=== PATIENT | male | born 1970 | race Caucasian/White ===

== ENCOUNTER 2017-10-20 00:50 | Emergency (ER) | payer OTHER, SELFPAY ==
[2017-10-20 00:51] VITALS: BP 158/98; PULSE 91; RESP 15; TEMP 37.1; O2SAT 98; BMI 27.4
--- NOTE | 2017-10-20 01:25 | EKG12_ITS ---
Test Reason : REPEAT Blood Pressure : / mmHG Vent. Rate : 086 BPM Atrial Rate : 086 BPM P-R Int : 156 ms QRS Dur : 104 ms QT Int : 360 ms P-R-T Axes : 046 022 013 degrees QTc Int : 430 ms Normal sinus rhythm Normal ECG Confirmed by RICHMOND GUDINO ([id number]), editor producer DEEDEE OLMOS ([id number]) on 11/01/2017 5:49:32 PM Referred By: MARCELINO Confirmed By:RICHMOND GUDINO
--- NOTE | 2017-10-20 01:26 | RAD_ITS ---
STUDY: X-RAY CHEST REASON FOR EXAM: Male, 47 years old. Chest pain. Diaphoresis, nausea. TECHNIQUE: PA and lateral chest. COMPARISON: None. FINDINGS: The lungs are clear and expanded. There is no demonstrated pleural abnormality. Normal size heart. Normal mediastinum and jose luis. Normal visualized pulmonary arteries. Normal visualized aortic arch and descending thoracic aorta. Normal visualized thoracic spine. Normal visualized ribs, clavicles, and shoulders. There is no demonstrated abnormality of the visualized soft tissue structures of the upper abdomen. RAD/Chest PA and Lateral IMPRESSION: Normal x-ray examination of the chest. Electronically Signed: Wilbert Corona MD at 2:48 EDT , Service support ,
[2017-10-20 01:28] VITALS: O2SAT 99
[2017-10-20 01:32] LABS: Absolute Lymphocyte Count 1.73 X10^3/ul (0.83-4.51); Absolute Neutrophil Count 3.6 X10^3/uL (2.0-7.7); Basophil# 0.02 X10^3/uL; Basophil% 0.3 % (0-1); Eosinophil# 0.21 X10^3/uL; Eosinophils% 3.4 % (0-5); Hematocrit 44.9 % (40-54); Hemoglobin 15.2 g/dl (13.0-16.5); Lymphocyte # 1.73 X10^3/ul (4.0); Mean Corp Hgb Conc 33.9 g/gl (32-36); Mean Corpuscular Hgb 31.5 pg (27.0-32.0); Mean Platelet Vol. 8.3 fl (6.2-12.0); Monocyte% 9.7 % (0-10); Neutrophil % 58.3 % (47-70); Platelet Count 191 K/mm3 (150-450); RBC Distribution Width CV 12.7 % (11.6-14.6); RBC Distribution Width SD 42.3 fl (35.1-43.9); Red Blood Count 4.83 M/mm3 (4.6-6.2); White Blood Count 6.2 K/mm3 (4.4-11.0)
[2017-10-20 01:33] LABS: POSITIVE COUNT NO; POSITIVE DIFFERENTIAL NO; POSITIVE MORPHOLOGY NO
[2017-10-20] MEDS: Aspirin 81 MG TAB.CHEW 324 MG PO (01:53)
[2017-10-20 01:58] LABS: Anion Gap 6 (5-15); BUN 18 mg/dL (7-18); BUN/Creat Ratio 18.9 RATIO (10-20); Calcium,Total 9.2 mg/dL (8.5-10.1); Chloride 104 mmol/L (98-107); Creatinine, Serum 0.95 mg/dL (0.70-1.30); EST Glomerular Filtration Rate 91 mL/min (>60); Est Glom Filt Rate - Afr Amer 110 mL/min (>60); Estimated Creatinine Clearance 98.19 ml/min; Glucose 96 mg/dL (74-106); Potassium 4.7 mmol/L (3.5-5.1); Sodium Level 139 mmol/L (136-145)
[2017-10-20 02:34] VITALS: BP 137/89; PULSE 87; RESP 19; O2SAT 93
--- NOTE | 2017-10-20 02:53 | EKG12_ITS ---
Test Reason : CP Blood Pressure : / mmHG Vent. Rate : 087 BPM Atrial Rate : 087 BPM P-R Int : 160 ms QRS Dur : 108 ms QT Int : 356 ms P-R-T Axes : 061 014 026 degrees QTc Int : 428 ms Normal sinus rhythm Normal ECG Confirmed by RICHMOND GUDINO ([id number]), assignment editor DEEDEE OLMOS ([id number]) on 11/01/2017 5:49:45 PM Referred By: MARCELINO Confirmed By:RICHMOND GUDINO
[2017-10-20 03:50] VITALS: BP 133/98; PULSE 80; RESP 17; O2SAT 95
--- NOTE | 2017-10-20 04:27 | ED.VISSUMM ---
- ER Visit Summary Date of Service: 10/20/17 Chief Complaint: Heart racing History of Present Illness: The patient is a 47 M with a history of depression anxiety and asthma who presents with a sensation of his heart racing and palpitations. He states this woke him from sleep at about 11 PM which was about 2 hours prior to presentation here. He states became diaphoretic nauseated and felt like his heart was racing. He denies any chest pain or shortness of breath with this. No history of prior similar symptoms. No recent illness. Physical Examination: Afebrile vitals are unremarkable Moist mucous membranes Heart regular rate and rhythm Lungs are clear Abdomen soft 2+ radial pulses extremities nontender no edema Alert Test Results: Initial EKG shows sinus rhythm at a rate of 87. Repeat EKG unchanged normal sinus rhythm at a rate of 86. CBC BMP normal. Troponin and delta troponin normal. Chest x-ray normal. Emergency Department Course and Treatment: Patient has remained resting comfortably throughout his observation here in the emergency department. He has been maintained on cardiac monitoring and has had no events on telemetry. His workup is unremarkable with normal labs repeat troponin. I do not believe his symptoms are due to cardiac ischemia. He has no evidence of dysrhythmia. He was advised to follow-up as an outpatient with his primary care physician and was discharged home. Treatment Plan: [] Disposition: Discharge Impression: Palpitations This note was generated with [employer] dictation software. It may contain incorrect words, spelling, and punctuation that were not noted in review of the chart prior to signing ED Disposition - Plan for ED Patient: Chief Complaint: Chest Pain Referrals: Fiona Bain DO [Primary Care Provider] -
--- NOTE | 2017-10-20 04:31 | ED.DEP ---
ED Disposition - Plan for ED Patient: Chief Complaint: Chest Pain Instructions: ED Palpitations Referrals: Fiona Bain DO [Primary Care Provider] -
[2017-10-20 04:35] VITALS: BP 132/94; PULSE 87; RESP 16; O2SAT 93
== END 2017-10-20 04:41 | disposition home or self-care (01) ==
PROVIDERS: Emergency Provider Emergency Medicine; Family Provider Internal Medicine; PCP Internal Medicine
DX: R00.2 Palpitations (principal); F32.9 Major depressive disorder, single episode, unspecified; F41.9 Anxiety disorder, unspecified; J45.909 Unspecified asthma, uncomplicated; Z79.899 Other long term (current) drug therapy
CPT/HCPCS: 71046; 80048; 84484; 85025; 93005; 99285; A4216

== ENCOUNTER 2018-06-24 12:53 | Emergency (ER) | payer OTHER, SELFPAY ==
[2018-06-24 12:55] VITALS: BP 148/93; PULSE 89; RESP 18; TEMP 36.6; O2SAT 99; BMI 27.4
--- NOTE | 2018-06-24 13:48 | ED.VISSUMM ---
- ER Visit Summary Date of Service: 06/24/18 Chief Complaint: Wooden foreign body volar surface left little finger History of Present Illness: The patient is a 48 M who is right-hand dominant presents with a retained wooden foreign body/splinter volar surface left little finger. He states he is able to palpate it. Uncertain of last tetanus. Per review of records tetanus was less than 5 years ago. He denies paresthesia, anesthesia motor weakness. He has no antibiotic allergies other than azithromycin. He has no limited range of motion. Physical Examination: Vital signs noted. Blood pressure slightly at 140/93. There is a palpable foreign body noted volar surface left little finger distal of the DIP joint on the ulnar side of the left little finger. Two-point determination normal. Sensation to light touch is intact. The flexor digitorum superficialis and flexor digitorum profundus are intact. The extensor minimize tendon is intact. There is no subungual hematoma noted. Capillary refill is normal. Test Results: None were obtained Emergency Department Course and Treatment: Digit was anesthetized 1% lidocaine by digital block. Skin was unroofed and attempt to remove the splinter. The splinter fragmented. Using a 15 blade the wound was extended distally. The area was undermined and a 2 mm x 10 mm wooden foreign body was removed. The cavity was irrigated with 100 cc of normal saline. No retained foreign body noted. Treatment Plan: Wound care, antibiotics and wound check in 2 days Disposition: Discharged home in stable improved condition Impression: Removal wooden foreign body left little finger This note was generated with [employer] dictation software. It may contain incorrect words, spelling, and punctuation that were not noted in review of the chart prior to signing ED Disposition - Plan for ED Patient: Disposition: Home or Assisted Living Instructions: ED Foreign Body Splinter Removal Prescriptions: Cephalexin [Keflex] 500 mg PO TID #14 cap Referrals: Fiona Bain DO [Primary Care Provider] - 2 Days for wound check
[2018-06-24] MEDS: Cephalexin 250 MG Capsule 500 MG PO (14:02)
[2018-06-24 14:04] VITALS: BP 122/84; PULSE 62; RESP 15; O2SAT 98
== END 2018-06-24 14:06 | disposition home or self-care (01) ==
PROVIDERS: Emergency Provider Emergency Medicine; Family Provider Internal Medicine; PCP Internal Medicine
DX: S60.457A Superficial foreign body of left little finger, initial encounter (principal); W45.8XXA Other foreign body or object entering through skin, initial encounter; Y93.9 Activity, unspecified; Y92.89 Other specified places as the place of occurrence of the external cause; Y99.8 Other external cause status; J44.9 Chronic obstructive pulmonary disease, unspecified
CPT/HCPCS: 10120; 99283

== ENCOUNTER → 2021-03-03 17:59 | Outpatient (CLI) | payer OTHER, SELFPAY | PROVIDERS: PCP Internal Medicine; Visit Provider Physician Assistant | DX: Z11.52 Encounter for screening for COVID-19 (principal) | CPT/HCPCS: 87635; U0005; U0003 ==

== ENCOUNTER 2022-02-09 20:51 | Emergency (ER) | payer OTHER, SELFPAY ==
[2022-02-09 20:52] VITALS: BP 133/92; PULSE 71; RESP 18; TEMP 36.3; O2SAT 98; BMI 28.6
--- NOTE | 2022-02-09 21:10 | EKG12_ITS ---
Test Reason : CP Blood Pressure : / mmHG Vent. Rate : 081 BPM Atrial Rate : 081 BPM P-R Int : 162 ms QRS Dur : 100 ms QT Int : 360 ms P-R-T Axes : 019 015 020 degrees QTc Int : 418 ms Normal sinus rhythm Normal ECG Confirmed by KRISHAN AVALOS, SARAH ([id number]), slot editor KAVITA PULIDO ([id number]) on 02/11/2022 11:02:16 AM Referred By: CHANO Confirmed By:SARAH NICKERSON MD
--- NOTE | 2022-02-09 21:11 | RAD_ITS ---
EXAM: XR CHEST, 1 VIEW CLINICAL INDICATION: chest pain TECHNIQUE: Frontal view of the chest. This report was created using [employer] report generation technology. COMPARISON: 10/20/2017 FINDINGS: LUNGS AND PLEURAL SPACES: Unremarkable. No consolidation or edema. No pneumothorax. No effusion. HEART: Unremarkable. Cardiac silhouette not enlarged. MEDIASTINUM: Central airways and mediastinal contour are unremarkable. BONES/JOINTS: Unremarkable. SOFT TISSUES: Unremarkable. RAD/Chest 1 View (Portable) IMPRESSION: No radiographic evidence of acute cardiopulmonary disease. Electronically Signed: Dallin Carcamo MD at 22:02 EDT ,
[2022-02-09 21:34] LABS: Absolute Neutrophil Count 5.6 X10^3/uL (2.0-7.7); Basophil# 0.05 X10^3/uL; Basophil% 0.6 % (0-1); Eosinophil# 0.19 X10^3/uL; Eosinophils% 2.1 % (0-5); Hematocrit 45.4 % (40-54); Hemoglobin 15.1 g/dL (13.0-16.5); Lymphocyte % 26.9 % (19-41); Mean Corp Hgb Conc 33.3 g/dL (32-36); Mean Corpuscular Hgb 30.9 pg (27.0-32.0); Mean Corpuscular Volume 92.8 fL (80-94); Mean Platelet Vol. 8.2 fl (6.2-12.0); Monocyte# 0.67 X10^3/uL; Monocyte% 7.5 % (0-10); NRBC Flagged by Analyzer 0 % (0-5); Neutrophil # 5.57 X10^3/uL (2.7-7.7); Neutrophil % 62.6 % (47-70); Platelet Count 208 K/mm3 (150-450); RBC Distribution Width CV 12.3 % (11.6-14.6); RBC Distribution Width SD 42.5 fl (35.1-43.9); Red Blood Count 4.89 M/mm3 (4.6-6.2); White Blood Count 8.9 K/mm3 (4.4-11.0)
[2022-02-09 22:13] LABS: Anion Gap 6 (5-15); BUN 21 mg/dL (7-18); BUN/Creat Ratio 19.8 RATIO (10-20); Calcium,Total 9.7 mg/dL (8.5-10.1); Chloride 101 mmol/L (98-107); Creatinine, Serum 1.06 mg/dL (0.70-1.30); EST Glomerular Filtration Rate 79 mL/min (>60); Est Glom Filt Rate - Afr Amer 95 mL/min (>60); Glucose 97 mg/dL (74-106); Potassium 4.2 mmol/L (3.5-5.1); Sodium Level 136 mmol/L (136-145); Troponin-I HS 4 pg/mL (3.0-78.0)
[2022-02-09 22:57] VITALS: BP 128/93; PULSE 76; RESP 18; O2SAT 97
--- NOTE | 2022-02-09 23:16 | EDS_ITS ---
HPI History of Present Illness Chief Complaint: Chest Pain Informant: patient Narrative Narrative: Patient was referred over to urgent care. Patient states that Wednesday he was having some epigastric discomfort. This reminded him of reflux that he used to have. Years ago he was on Pepcid but when he stopped drinking any alcohol his reflux went away. He had that similar feeling Wednesday. When he went to sleep he then woke up a couple hours later with some coughing gagging and burning with acid in the back of his throat. He had that burning feeling up and down his sternum and in his throat. He was then able to get back to sleep. No problems with activity. He had a little bit of this again on Wednesday. It was not as bad and did not last as long. Today he went to urgent care because he had some pressure in his right ear and a little bit of sore throat and his neck was little bit sore. He thought this might be allergies versus an ear infection. He does have a history of allergies that will cause this. But he was not having chest pain with this. He has not had continual coughing. Patient is a non-smoker. Unknown family history because he is adopted. No history of diabetes cholesterol or hypertension. He takes no medicines. No recent surgery travel immobilization personal or family history of DVT or PE. No leg pain or swelling. He feels fine right now. [facility] Medical History Anxiety Encounter for screening for COVID-19 Fatigue Hay fever Headache Shoulder pain SOB (shortness of breath) Tonsillectomy planned Home Medications fluticasone 250 mcg-salmeterol 50 mcg/dose blistr powdr for inhalation 1 puff inhalation BID 03/08/15 [History Last Taken 06/24/18] esomeprazole magnesium 20 mg capsule,delayed release (Nexium) 20 mg PO DAILY #30 caps 02/09/22 [Rx Last Taken Unknown] Allergy/AdvReac Type Severity Reaction Status Date / Time azithromycin [From Zithromax] Allergy Upset Verified 02/09/22 20:52 Stomach oxycodone AdvReac Nausea Verified 02/09/22 20:52 Social History Smoking Status: Never smoker Smokeless tobacco user: chewing tobacco ROS ROS ED Constitutional Constitutional ED: Denies chills, fever(s) or subjective Eyes Eyes: Denies change in vision ENT ENT ED: Reports ear pain, rhinorrhea and sore throat Cardiovascular Cardiovascular: Reports as per HPI Respiratory/Chest Respiratory/Chest: Reports cough and other Details: See history of present illness. Gastrointestinal Gastrointestinal: Reports nausea; Denies vomiting Musculoskeletal Musculoskeletal: Reports neck pain and other Details: See history of present illness ; Denies arthralgias or back pain Integumentary Denies rash Neurologic Neurologic: Denies headache(s), paresthesias or weakness Endocrine Endocrinology: Denies polydipsia or polyuria Hematologic/Lymphatic Hematologic/Lymphatic: Denies easy bleeding, easy bruising or lymphadenopathy Allergic/Immunologic Allergic/Immunologic ED: Denies urticaria EXAM Physical Exam Const Vital Signs: 02/09/22 20:52 02/09/22 22:57 02/09/22 22:57 Temperature 97.4 F L Temperature Source Temporal Pulse Rate 71 76 Respiratory Rate 18 18 Blood Pressure 133/92 H 128/93 H Blood Pressure Mean 105 104 Pulse Ox 98 97 Oxygen Delivery Method Room Air Room Air Room Air Positive well nourished and well developed General Appearance ED: well developed and NAD HEENT Reports TM's clear and moist mucous membranes HEENT Narrative: Both tympanic membranes are clear with no sign of infection. Oropharynx is normal. Parotid gland is nontender. Tympanic Membrane ED: Yes TM's clear Eyes PERRL and EOMs intact bilaterally General Eye ED: Negative for scleral icterus Neck no lymphadenopathy, supple and no JVD General: Negative for tenderness Chest Wall inspection of chest normal and palpation of chest normal Resp normal respiratory effort and clear to auscultation bilaterally Auscultation: Negative for rales, rhonchi or wheezes Cardio regular rate, regular rhythm and no murmurs GI normal to inspection, nondistended, normoactive bowel sounds, soft to palpation and non-tender Back/Spine no CVA tenderness Extremity normal to inspection Extremity Narrative: No edema cords or asymmetry. No tenderness. General Extremety ED: Negative for edema or tenderness General Extremity: Negative for edema Neuro Sensorium / Orientation: awake and alert Psych mental status grossly normal Skin no rashes or lesions noted Heart Score History: Slightly/Non-Suspicious ECG: Normal Age: >45 - <65 years Risk Factors: No Risk Factors Troponin: </= Normal Limit Score: 1 MDM MDM MDM Narrative Medical decision making narrative: CBC is normal. Electrolytes are normal other than a BUN of 21. Troponin is only 4. This patient's symptoms are more consistent with reflux disease and possible some mild allergies. He has a history of both. He is asymptomatic. His EKG shows no marked change. His troponin is negative. Since his symptoms were Wednesday night and Wednesday night I do not think a delta is needed. He has a heart score of 1. Follow-up is appropriate. He does get exams every 6 months through his primary physician and has never had issues. I think starting him on Nexium or Prilosec would be appropriate. Lab Data Attestation: I reviewed the patient's lab results. Labs: Laboratory Results - last 24 hr 02/09/22 02/09/22 21:30 21:30 WBC 8.9 RBC 4.89 Hgb 15.1 Hct 45.4 MCV 92.8 MCH 30.9 MCHC 33.3 RDW Std Deviation 42.5 RDW Coeff of Catherine 12.3 Plt Count 208 MPV 8.2 Immature Gran % (Auto) 0.300 Neut % (Auto) 62.6 Lymph % (Auto) 26.9 Plumas % (Auto) 7.5 Eos % (Auto) 2.1 Baso % (Auto) 0.6 Absolute Neuts (auto) 5.6 Absolute Lymphs (auto) 2.40 Nucleated RBC % 0 Sodium 136 Potassium 4.2 Chloride 101 Carbon Dioxide 29.0 Anion Gap 6 BUN 21 H Creatinine 1.06 Estim Creat Clear Calc 84.30 Est GFR (MDRD) Af Amer 95 Est GFR (MDRD) Non-Af 79 BUN/Creatinine Ratio 19.8 Glucose 97 Calcium 9.7 Troponin I High Sens 4 Radiography Diagnostic Testing: Clinical Impression(s) from Imaging Studies Chest X-Ray 02/09/22 21:11 IMPRESSION: No radiographic evidence of acute cardiopulmonary disease. Electronically Signed: Dallin Carcamo MD at 22:02 EDT , EKG Initial EKG: Comments: EKG done for chest burning read by me shows normal sinus rhythm with overall rate of 81. No ectopy. No acute ST elevation or depression. HI interval is normal. QRS duration and QTc are normal. This EKG looks similar to prior from urgent care. Discharge Plan Triage Chief Complaint: Chest Pain ED Provider: Patrick Gomes Dx/Rx/DC Orders Clinical Impression: Acid reflux disease Instructions: ED Chest Pain, Uncertain Cause, ED GERD (Adult) Prescriptions: New esomeprazole magnesium [Nexium] 20 mg capsule,delayed release(DR/EC) 20 mg PO DAILY Qty: 30 0RF No Action fluticasone propion-salmeterol 1 EACH blister with device 1 puff inhalation BID Label Comments: SHORTNESS OF BREATH Primary Care Provider: Fiona Bain Referrals: Fiona Bain DO [Primary Care Provider] - 3-5 Days Disposition Disposition: Home, Self Care
[2022-02-09 23:33] VITALS: BP 127/94; PULSE 78; RESP 16; TEMP 36.6; O2SAT 99
== END 2022-02-09 23:34 | disposition home or self-care (01) ==
LOC: ED 23:24
PROVIDERS: Emergency Provider Emergency Medicine; PCP Internal Medicine; Visit Provider Emergency Medicine
DX: K21.9 Gastro-esophageal reflux disease without esophagitis (principal)
CPT/HCPCS: 71045; 80048; 84484; 85025; 93005; 99284; A4216